=== PATIENT | female | born 1945 | race Caucasian/White ===

== ENCOUNTER 2020-02-09 07:17 | Inpatient (IN) ==
[2020-02-09] MEDS ORDERED: SODIUM CHLORIDE 0.9% 1,000 ML IV STA (09:11)
[2020-02-09] MEDS ORDERED: ONDANSETRON 4 MG/2 ML VIAL IV ONE (09:13)
[2020-02-09 09:44] LABS: Basophils % 0.2 % (0.0-0.8); Eosinophils % 0.2 % (0.00-10.9); Hematocrit 44.2 VOL% (35.7-47.0); Hemoglobin 15.2 GM/DL (12.0-16.0); Immature Granulocytes % 0.4 %; Immature Granulocytes Absolute 0.08 #; Lymphocytes # 1.9 10*3/uL (1.4-4.0); Lymphocytes % 9.9 % (21.3-54.2); Mean Corpuscular HGB Conc 34.4 GM/DL (32-36); Mean Corpuscular Volume 101.8 FL (87-102); Mean Platelet Volume 10.2 FL (9.6-12.0); Monocytes % 7.8 % (1.7-12.7); Neutrophils % 81.5 % (38.7-73.9); Platelet Count 265 T/CUMM (130-400); Red Blood Count 4.34 MC/CUMM (3.8-5.5); Red Cell Distribution Width 13.8 % (9.3-17.3)
[2020-02-09] MEDS ORDERED: cefTRIAXone 1,000 MG in SODIUM CHLORIDE 0.9% 100 ML IV STA (09:59)
[2020-02-09] MEDS ORDERED: cefTRIAXone 1,000 MG VIAL ONE (10:01)
[2020-02-09 10:11] LABS: Alanine Aminotransferase 17 U/L (13-56); Albumin 3.3 G/DL (3.4-5.0); Alkaline Phosphatase 61 U/L (45-117); Aspartate Amino Transferase 12 U/L (0-37); Blood Urea Nitrogen 18 MG/DL (7-18); Calcium 8.9 MG/DL (8.5-10.1); Estimated Glom Filtration Rate 83 ML/MIN; Ferritin 34.2 ng/ml (8-252); Glucose 105 MG/DL (74-106); Osmolality,Calculated 278.5 MOS/KG (273-304); Total Protein 6.6 G/DL (6.4-8.3)
[2020-02-09] MEDS ORDERED: ACETAMINOPHEN 325 MG TABLET PO PRN (10:31)
[2020-02-09] MEDS ORDERED: ZALEPLON 5 MG CAPSULE PO PRN (10:31)
[2020-02-09 10:35] LABS: Bacteria,Urine Many /HPF (Few); Bilirubin,Urine Negative (Negative); Blood, Urine Negative (Negative); Glucose,Urine (UA) Negative (Negative); Ketones,Urine Negative (Negative); Mucus,Urine Occasional /LPF (Occasional); Nitrite,Urine Negative (Negative); Protein,Urine Negative; RBC,Urine 2 /HPF (0-4); Squamous Epithelial Cell,Urine Occasional /HPF (0-10); Urine Appearance Slightly Hazy (Clear); Urine Specific Gravity 1.019 (1.001-1.035); Urine Urobilinogen < 2.0 EU/DL (0.2-1.0); WBC,Urine 10 /HPF (0-6)
[2020-02-09 10:38] LABS: Urine Color Yellow (Yellow)
[2020-02-09 10:58] LABS: ABG Base Excess 0.7 MMOL/L (-2.5-2.5); ABG HCO3 24.9 MMOL/L (20-26); ABG Oxygen Saturation 92.5 % (95-100); ABG PH 7.423 (7.35-7.45); ABG PO2 65.2 MM HG (80-95); ABG TCO2 21.3 MMOL/L (23-27)
[2020-02-09] MEDS ORDERED: ONDANSETRON 4 MG TABLET PO SCH (11:00)
[2020-02-09] MEDS: AZITHROMYCIN INJ 500 MG in SODIUM CHLORIDE 0.9% 250 ML IV SCH (11:15)
[2020-02-09] MEDS ORDERED: ALBUTEROL 2.5 MG/3 ML NEB RESP TX PRN (13:37)
[2020-02-09] MEDS: FOLIC ACID 1 MG TABLET PO SCH (14:14)
[2020-02-09] MEDS: ACETAMINOPHEN 325 MG TABLET PO PRN ×2 (14:14→20:56)
[2020-02-09] MEDS: ALBUTEROL/IPRATROPIUM 3 ML NEB RESP TX SCH (19:43)
[2020-02-09] MEDS: ZOLPIDEM 5 MG TABLET PO PRN (20:57)
[2020-02-09] MEDS: MONTELUKAST 10 MG TABLET PO SCH (20:57)
[2020-02-09] MEDS: ATORVASTATIN 20 MG TABLET PO SCH (20:57)
[2020-02-09] MEDS: POTASSIUM CHLORIDE 20 MEQ TABLET PO SCH (20:57)
[2020-02-10] MEDS: ALBUTEROL/IPRATROPIUM 3 ML NEB RESP TX SCH ×4 (00:45→19:58)
[2020-02-10 05:41] LABS: Basophils % 0.2 % (0.0-0.8); Eosinophils # 0.1 10*3/uL (0.0-0.87); Eosinophils % 0.4 % (0.00-10.9); Hematocrit 37.9 VOL% (35.7-47.0); Hemoglobin 12.7 GM/DL (12.0-16.0); Immature Granulocytes % 0.3 %; Immature Granulocytes Absolute 0.04 #; Lymphocytes # 2.4 10*3/uL (1.4-4.0); Lymphocytes % 18.5 % (21.3-54.2); Mean Corpuscular HGB Conc 33.5 GM/DL (32-36); Mean Corpuscular Volume 103.8 FL (87-102); Mean Platelet Volume 10.9 FL (9.6-12.0); Monocytes % 5.8 % (1.7-12.7); Neutrophils % 74.8 % (38.7-73.9); Platelet Count 213 T/CUMM (130-400); Red Blood Count 3.65 MC/CUMM (3.8-5.5); Red Cell Distribution Width 13.8 % (9.3-17.3); White Blood Count 12.9 T/CUMM (4-12)
[2020-02-10 05:58] LABS: Albumin 2.5 G/DL (3.4-5.0); Bilirubin,Total 1.1 MG/DL (0.2-1.0); Osmolality,Calculated 281.3 MOS/KG (273-304); Total Protein 5.8 G/DL (6.4-8.3)
[2020-02-10] MEDS: FLUTICASONE 50 MCG NASAL SPRAY 16 GM BOTTLE BOTH NARES SCH (08:19)
[2020-02-10] MEDS: FUROSEMIDE 40 MG TABLET PO SCH (08:20)
[2020-02-10] MEDS: predniSONE 5 MG TABLET PO SCH (08:20)
[2020-02-10] MEDS: POTASSIUM CHLORIDE 20 MEQ TABLET PO SCH ×2 (08:20→20:56)
[2020-02-10] MEDS: CALCIUM (CARBONATE)/VITAMIN D 600 MG-400 UNIT TABLET PO SCH (08:20)
[2020-02-10] MEDS: MULTIVITAMIN (CENTRUM) TABLET PO SCH (08:21)
[2020-02-10] MEDS: FOLIC ACID 1 MG TABLET PO SCH (08:21)
[2020-02-10] MEDS: PANTOPRAZOLE 40 MG TABLET PO SCH (08:21)
[2020-02-10] MEDS: OMEGA 3 ACID ETHYL ESTERS 1 GM CAPSULE PO SCH (08:21)
[2020-02-10] MEDS: HYDROXYCHLOROQUINE 200 MG TABLET PO SCH (08:21)
[2020-02-10] MEDS: ASCORBIC ACID 500 MG TABLET PO SCH (09:39)
[2020-02-10] MEDS: cefTRIAXone 1,000 MG in SYRINGE 1 EACH IV SCH (09:40)
[2020-02-10] MEDS: AZITHROMYCIN INJ 500 MG in SODIUM CHLORIDE 0.9% 250 ML IV SCH (09:40)
[2020-02-10] MEDS: ZOLPIDEM 5 MG TABLET PO PRN (20:56)
[2020-02-10] MEDS: MONTELUKAST 10 MG TABLET PO SCH (20:57)
[2020-02-10] MEDS: ATORVASTATIN 20 MG TABLET PO SCH (20:57)
[2020-02-11] MEDS: ALBUTEROL/IPRATROPIUM 3 ML NEB RESP TX SCH ×4 (02:00→19:28)
[2020-02-11 05:57] LABS: Basophils % 0.2 % (0.0-0.8); Eosinophils % 0.4 % (0.00-10.9); Hematocrit 40.3 VOL% (35.7-47.0); Immature Granulocytes % 0.4 %; Immature Granulocytes Absolute 0.04 #; Lymphocytes % 19.7 % (21.3-54.2); Mean Corpuscular HGB Conc 32.3 GM/DL (32-36); Mean Corpuscular Volume 104.7 FL (87-102); Mean Platelet Volume 10.5 FL (9.6-12.0); Monocytes % 7.3 % (1.7-12.7); Platelet Count 240 T/CUMM (130-400); Red Blood Count 3.85 MC/CUMM (3.8-5.5); Red Cell Distribution Width 13.9 % (9.3-17.3); White Blood Count 10.1 T/CUMM (4-12)
[2020-02-11 06:14] LABS: Risk Ratio 1.84; VLDL CHOLESTEROL 12.6 MG/DL
[2020-02-11 06:17] LABS: Albumin 2.9 G/DL (3.4-5.0); Bilirubin,Total 0.8 MG/DL (0.2-1.0); Calcium 8.9 MG/DL (8.5-10.1); Osmolality,Calculated 274.8 MOS/KG (273-304); Total Protein 6.6 G/DL (6.4-8.3)
[2020-02-11] MEDS: cefTRIAXone 1,000 MG in SYRINGE 1 EACH IV SCH (09:43)
[2020-02-11] MEDS: FUROSEMIDE 40 MG TABLET PO SCH (09:43)
[2020-02-11] MEDS: CALCIUM (CARBONATE)/VITAMIN D 600 MG-400 UNIT TABLET PO SCH (09:43)
[2020-02-11] MEDS: HYDROXYCHLOROQUINE 200 MG TABLET PO SCH (09:44)
[2020-02-11] MEDS: predniSONE 5 MG TABLET PO SCH (09:44)
[2020-02-11] MEDS: POTASSIUM CHLORIDE 20 MEQ TABLET PO SCH ×2 (09:45→21:00)
[2020-02-11] MEDS: MULTIVITAMIN (CENTRUM) TABLET PO SCH (09:45)
[2020-02-11] MEDS: ASCORBIC ACID 500 MG TABLET PO SCH (09:45)
[2020-02-11] MEDS: AZITHROMYCIN 250 MG TABLET PO SCH (09:45)
[2020-02-11] MEDS: OMEGA 3 ACID ETHYL ESTERS 1 GM CAPSULE PO SCH (09:45)
[2020-02-11] MEDS: PANTOPRAZOLE 40 MG TABLET PO SCH (09:46)
[2020-02-11] MEDS: FLUTICASONE 50 MCG NASAL SPRAY 16 GM BOTTLE BOTH NARES SCH (09:46)
[2020-02-11] MEDS: FOLIC ACID 1 MG TABLET PO SCH (12:49)
[2020-02-11] MEDS: METOPROLOL SUCCINATE XL 25 MG TABLET PO SCH (17:47)
[2020-02-11] MEDS: ATORVASTATIN 20 MG TABLET PO SCH (21:01)
[2020-02-11] MEDS: MONTELUKAST 10 MG TABLET PO SCH (21:01)
[2020-02-11] MEDS: ZOLPIDEM 5 MG TABLET PO PRN (22:03)
[2020-02-11] MEDS ORDERED: DOCUSATE SODIUM 100 MG CAPSULE PO PRN (22:07)
[2020-02-11] MEDS: POLYETHYLENE GLYCOL POWDER 17 GM PACK PO PRN (22:43)
[2020-02-12] MEDS: ALBUTEROL/IPRATROPIUM 3 ML NEB RESP TX SCH ×2 (00:02→07:34)
[2020-02-12 07:00] LABS: Basophils % 0.2 % (0.0-0.8); Eosinophils # 0.1 10*3/uL (0.0-0.87); Eosinophils % 0.8 % (0.00-10.9); Hematocrit 38.2 VOL% (35.7-47.0); Hemoglobin 12.7 GM/DL (12.0-16.0); Immature Granulocytes % 0.2 %; Immature Granulocytes Absolute 0.02 #; Lymphocytes % 23.5 % (21.3-54.2); Mean Corpuscular HGB Conc 33.2 GM/DL (32-36); Mean Corpuscular Volume 103.5 FL (87-102); Mean Platelet Volume 10.4 FL (9.6-12.0); Neutrophils % 66.3 % (38.7-73.9); Platelet Count 240 T/CUMM (130-400); Red Blood Count 3.69 MC/CUMM (3.8-5.5); Red Cell Distribution Width 13.8 % (9.3-17.3); White Blood Count 8.4 T/CUMM (4-12)
[2020-02-12 07:24] LABS: Albumin 2.7 G/DL (3.4-5.0); Bilirubin,Total 0.7 MG/DL (0.2-1.0); Calcium 8.8 MG/DL (8.5-10.1); Osmolality,Calculated 279.4 MOS/KG (273-304); Total Protein 6.2 G/DL (6.4-8.3)
[2020-02-12] MEDS: cefTRIAXone 1,000 MG in SYRINGE 1 EACH IV SCH (08:21)
[2020-02-12] MEDS: MULTIVITAMIN (CENTRUM) TABLET PO SCH (08:22)
[2020-02-12] MEDS: POLYETHYLENE GLYCOL POWDER 17 GM PACK PO PRN (08:22)
[2020-02-12] MEDS: METOPROLOL SUCCINATE XL 25 MG TABLET PO SCH (08:23)
[2020-02-12] MEDS: CALCIUM (CARBONATE)/VITAMIN D 600 MG-400 UNIT TABLET PO SCH (08:24)
[2020-02-12] MEDS: predniSONE 5 MG TABLET PO SCH (08:24)
[2020-02-12] MEDS: FOLIC ACID 1 MG TABLET PO SCH (08:24)
[2020-02-12] MEDS: OMEGA 3 ACID ETHYL ESTERS 1 GM CAPSULE PO SCH (08:24)
[2020-02-12] MEDS: AZITHROMYCIN 250 MG TABLET PO SCH (08:25)
[2020-02-12] MEDS: POTASSIUM CHLORIDE 20 MEQ TABLET PO SCH (08:25)
[2020-02-12] MEDS: PANTOPRAZOLE 40 MG TABLET PO SCH (08:25)
[2020-02-12] MEDS: FLUTICASONE 50 MCG NASAL SPRAY 16 GM BOTTLE BOTH NARES SCH (08:26)
[2020-02-12] MEDS: ASCORBIC ACID 500 MG TABLET PO SCH (08:26)
[2020-02-12] MEDS: FUROSEMIDE 40 MG TABLET PO SCH (08:26)
[2020-02-12] MEDS ORDERED: metFORMIN 500 MG TABLET PO SCH (09:00)
[2020-02-12 11:56] VITALS: BP 129/93
[2020-02-13] MEDS ORDERED: CEFUROXIME 500 MG TABLET PO SCH (09:00)
[2020-02-16] MEDS ORDERED: ERGOCALCIFEROL 50,000 UNIT CAPSULE PO SCH (09:00)
== END 2020-02-12 13:01 | disposition home or self-care (01) | DRG 871 ==
LOC: N.ED 07:17 → SUATTDRO 10:48 → N.EDINP 10:48 → N.5E 11:38
PROVIDERS: ADMIT Hospitalist; ATTEND Internal Medicine